=== PATIENT | female | born 1930 | race Caucasian/White ===

== ENCOUNTER → 2016-08-02 | Outpatient (CLI) | payer MEDICARE ==
--- NOTE | 2016-08-02 12:04 | PE ---
EXAMINATION TYPE: PET CT fusion skull to thigh DATE OF EXAM: 08/02/2016 10:42 AM CLINICAL HISTORY: Breast cancer initial staging study. Positive biopsy June 2016 right breast. TECHNIQUE: Following the intravenous administration of 14.81 mCi of F-18 FDG, whole body images are performed from the skull base to the midthigh. Images are reviewed on the computer in the coronal, axial, and sagittal planes. Reconstructed rotating images are created on independent workstation and reviewed on the computer. A non-contrast CT is performed in conjunction with the PET scan. COMPARISON: None. FINDINGS: SKULL BASE AND NECK: No suspicious hypermetabolic uptake is seen in the neck to suggest metastatic a denopathy. Increased uptake in both shoulders, right greater than left is presumed to reflect postinflammatory c hange. Mild symmetric uptake at level of vocal cords is felt to reflect product of phonation. CHEST, MEDIASTINUM, AND HILAR REGION: No suspicious hypermetabolic uptake is seen in the right breast . Mild diffuse uptake with surgical clips is felt to reflect posttreatment or surgical change. No trudi picious uptake or right axillary adenopathy is seen. No suspicious uptake is seen in the left breast. No suspicious uptake is seen in the remainder of the thorax. ABDOMEN AND PELVIS: No suspicious hypermetabolic uptake is seen in the abdomen or pelvis. Normal excr etion in the bladder is noted. OSSEOUS STRUCTURES: No suspicious hypermetabolic uptake is seen in osseous structures. OTHER CT: There is left subclavian Mediport catheter with tip difficult to distinctly visualized. The re is left-sided dual-lead pacemaker/AICD also present. There is background of mild to moderate emphysematous change with scattered areas of dependent atelec tasis along fissures and in both lungs. Heart size is upper limits of normal. Coronary artery calcification is present. There is moderate atherosclerotic change of aorta and branch vessels. Uterus is surgically absent or markedly atrophic in appearance. There is moderate fecal prominence throughout the colon. Sigmoid colonic diverticulosis is present. Osseous structures are demineralized. There is moderate right greater than left joint space loss in b oth hips. There is facet arthropathy lower lumbar levels. There is multilevel spurring in the thoraco lumbar spine. Exaggerated cervical curvature is seen. Marked disc space narrowing and spurring C6-C7 level is noted. IMPRESSION: No suspicious hypermetabolic uptake is seen to suggest persistent or metastatic malignanc y. Surgical changes right breast noted.
== END | disposition home or self-care (01) ==
LOC: RADPETMAIN 08:15
PROVIDERS: ATTEND Surgery
DX: C50.919 Malignant neoplasm of unspecified site of unspecified female breast (principal); Z98.890 Other specified postprocedural states
CPT/HCPCS: 78815; A9552

== ENCOUNTER 2016-08-26 08:21 | Day surgery (SDC) | payer MEDICARE ==
[2016-08-25 14:49] VITALS: BMI 23.8
[~2016-08-26 08:21] MED LIST: DEXAMETHASONE SOD PHOSPHATE 10 MG/ML 1 ML VIAL IV ONE; HEPARIN SODIUM,PORCINE 5,000 UNIT/ML 1 ML VIAL SQ ONE; LACTATED RINGERS 1,000 ML IV SCH; MIDAZOLAM 2 MG/2 ML VIAL IV PRN; ONDANSETRON 4 MG/2 ML VIAL IVP ONE; Pre Op ABX Message 1 EACH MISC MISCELLANE ONE
[2016-08-26] MEDS ORDERED: ALPRAZolam 0.25 MG TAB PO ONE (09:27)
[2016-08-26] MEDS ORDERED: LACTATED RINGERS 1,000 ML IV ONE ×2 (09:29→12:00)
[2016-08-26 09:33] LABS: Glucose,Whole Blood 122 mg/dL (75-99)
--- NOTE | 2016-08-26 09:58 | NM ---
EXAMINATION TYPE: NM sentinel node injection DATE OF EXAM: 08/26/2016 9:50 AM COMPARISON: NONE HISTORY: Breast cancer TECHNIQUE AND FINDINGS: The procedure of sentinel lymph node injection was explained to the patient. The benefits, alternatives, and risks were discussed. An informed consent was then obtained. Overlying skin is cleaned with sterile alcohol. Lidocaine buffered with bicarbonate was used as anes thetic into the skin and subcutaneous tissue surrounding the nipple. Following this, 546 uCi Tc 99m Filtered Sulfur Colloid was injected into 4 equivalent doses at 12, 3, 6, and 9:00 position surroundi ng the right nipple intradermally. The injection sites were massaged by nuclear cardiology technologist for 10 minutes after injection. T he patient tolerated the procedure well without any immediate complication. The patient was kept in the radiology department for short stay after the procedure and then taken to surgery for surgical pr ocedure what is presumed intraoperative gamma probe will be used for sentinel lymph node detection. IMPRESSION: Right breast radiotracer injection for sentinel node localization as above.
[2016-08-26] MEDS ORDERED: METHYLENE BLUE 10 MG/ML 1 ML VIAL IV ONE (10:26)
[2016-08-26] MEDS ORDERED: HEPARIN SODIUM,PORCINE 5,000 UNIT/ML 1 ML VIAL SQ ONE (10:31)
[2016-08-26] MEDS ORDERED: ePHEDrine 50 MG/ML 1 ML AMP ONE (10:46)
[2016-08-26] MEDS ORDERED: SUCCINYLCHOLINE CHLORIDE 100 MG/5 ML SYR IV ONE (10:46)
[2016-08-26] MEDS ORDERED: ROCURONIUM BROMIDE 10 MG/ML 10 ML VIAL IV ONE (10:46)
[2016-08-26] MEDS ORDERED: NEOSTIGMINE 1 MG/ML 10 ML VIAL ONE (10:46)
[2016-08-26] MEDS ORDERED: GLYCOPYRROLATE 0.2 MG/ML 2 ML VIAL ONE (10:46)
[2016-08-26] MEDS ORDERED: PROPOFOL 10 MG/ML 20 ML VIAL IV ONE (10:46)
[2016-08-26] MEDS ORDERED: LIDOCAINE 1% INJ 10MG/ML (20 ML MDV) ONE (10:46)
[2016-08-26] MEDS ORDERED: PHENYLEPHRINE-0.9% NACL SYG 1 MG/10 ML SYRINGE ONE (10:46)
[2016-08-26] MEDS ORDERED: MIDAZOLAM 2 MG/2 ML VIAL ONE (10:46)
[2016-08-26] MEDS ORDERED: fentaNYL (PF) 50 MCG/ML 2 ML AMP ONE (10:46)
[2016-08-26] MEDS ORDERED: SODIUM CHLORIDE 0.9% 50 ML with ceFAZolin 2,000 MG IV ONE ×2 (11:05)
[2016-08-26] MEDS ORDERED: METHYLENE BLUE 10 MG/ML 1 ML VIAL INJ ONE (11:57)
[2016-08-26] MEDS ORDERED: NALOXONE 0.4 MG/ML 1 ML VIAL IV PRN (12:09)
[2016-08-26] MEDS ORDERED: ONDANSETRON 4 MG/2 ML VIAL IVP PRN (12:09)
[2016-08-26] MEDS ORDERED: HYDROmorphone 1 MG/ML 1 ML SYRINGE IV PRN (12:09)
[2016-08-26] MEDS ORDERED: HYDROcodone/APAP 5-325MG 1 EACH TAB PO PRN (12:09)
--- NOTE | 2016-08-26 12:09 | P.OP ---
Date of Procedure: 08/26/16 Preoperative Diagnosis: Right breast cancer Postoperative Diagnosis: Right breast cancer sentinel node negative for cancer Procedure(s) Performed: Right breast lymphatic mapping, mastectomy, and sentinel node biopsy Anesthesia: EDWIN Surgeon: Prisca Bledsoe Guitar Maker Hand #1: Cori Brown Estimated Blood Loss (ml): 25 IV fluids (ml): 1,000 Pathology: other (Right breast, and sentinel node) Condition: stable Disposition: PACU Indications for Procedure: Right breast cancer Operative Findings: Right breast, sentinel node negative for cancer on frozen section Description of Procedure: Patient was taken to the operating room and following induction of general anesthesia the right breast and axilla were prepped and draped in a sterile fashion. Prior to this of 6 mL of quarter strength methylene blue were injected in the periareolar area. The breast was massaged. The after the patient had been prepped and draped. An inferior skin flaps were developed. These were carried down to the chest wall. Breast was dissected from medial to lateral being careful to maintain hemostasis using electrocautery device and the Harmonic scalpel. The breast was then removed. In the axilla there was a blue radioactive lymph node identified. The 10 second count on the lymph node was 156 and the 10 second count in the axilla background was 4. The lymph node was sent for frozen section evaluation was noted to be blue as well and it was negative for cancer. No other adenopathy was identified. No other blue or radioactive lymph nodes were noted. The wound was well irrigated. 2 RHONDA drains were placed one in the axilla and one under the skin flaps. The deep tissues were closed using 3-0 Vicryl suture. This was felt that closing the skin with 4-0 Monocryl. Steri-Strips were applied. Patient tolerated procedure in stable condition. All instrument and sponge counts were correct at the end of the case.
[2016-08-26] MEDS ORDERED: DEXTROSE 5%-0.45% NACL 1,000 ML IV SCH (12:15)
[2016-08-26 12:37] LABS: Glucose,Whole Blood 126 mg/dL (75-99)
[2016-08-26] MEDS: HYDROmorphone 1 MG/ML 1 ML SYRINGE IVP PRN ×2 (12:52→13:09)
[2016-08-26] MEDS: HEPARIN SODIUM,PORCINE 5,000 UNIT/ML 1 ML VIAL SQ SCH (23:49)
[2016-08-27] MEDS: HEPARIN SODIUM,PORCINE 5,000 UNIT/ML 1 ML VIAL SQ SCH (09:13)
[2016-08-27 11:00] LABS: Basophils % (A) 0 %; CH 30.6; CHCM 32.9; Eosinophils % (A) 0 %; HCT 32.8 % (34.0-46.0); HDW 2.35; HGB 10.6 gm/dL (11.4-16.0); Luc # (Auto) 0.06; Luc % (Auto) 1; Lymphocytes # (A) 1.5 k/uL (1.0-4.8); Lymphocytes % (A) 16 %; MCH 30.2 pg (25.0-35.0); MCHC 32.2 g/dL (31.0-37.0); MCV 93.8 fL (80.0-100.0); Mean Platelet Volume 8.4; Monocytes # (A) 0.6 k/uL (0-1.0); Monocytes % (A) 7 %; Neutrophils # (A) 6.9 k/uL (1.3-7.7); Neutrophils % (A) 76 %; WBC 9.1 k/uL (3.8-10.6); WBC (Perox) 9.19
[2016-08-27 13:19] VITALS: BP 114/74; PULSE 66; RESP 16; TEMP 97.6
--- NOTE | 2016-08-27 13:23 | P.DS ---
Providers Expected date of discharge: 08/27/16 Attending physician: Prisca Bledsoe Consults: 08/26/16 12:12 Consult Physician Routine Consulting Provider: Geoffrey Jones Consult Reason/Comments: Medical management Do you want consulting provider notified?: Yes Primary care physician: [facility] Course: 85-year-old female who presented on an elective basis to undergo right breast mastectomy for right breast cancer sentinel node-negative for cancer done on August 26 postprocedure there were no postop events. On the day of discharge the patient was evaluated by the surgical service Dr. Nuno. Dressing in place with 2 Justice-Niño drains. Pain medication has been effective for pain control patient was felt to be hemodynamically stable and appropriate to proceed with a discharge. It's noted the patient does have a permanent pacemaker in which the patient states it's been years since it has been checked did advise the patient to have this checked in the outpatient setting defer to her family doctor to set up in a range the hemoglobin on the day of discharge was 10.6 subsequent the patient was discharged with the plan the patient with follow-up with Dr. Nuno as directed Impression discharge diagnosis History of right breast cancer Postop 26 of August right breast mastectomy sentinel node negative for cancer on frozen section History of a permanent pacemaker The above dictated assessment and findings were discussed with Dr. Andres Haro. Impression and the plan of care have been dictated as directed. Laurel Ramos nurse practitioner acting as a scribe for Nurys Plan - Discharge Summary Discharge Medication List Aspirin 81 mg PO DAILY 07/09/16 [History] Benazepril/Hydrochlorothiazide [Benazepril-Hctz 20-25 mg Tab] 1 each PO QAM [History] Etodolac [Lodine] 400 mg PO BID 07/09/16 [History] Naproxen 500 mg PO Q12HR 07/09/16 [History] Oxybutynin Chloride [Ditropan XL] 5 mg PO DAILY 07/09/16 [History] Venlafaxine HCl [Effexor XR] 75 mg PO QAM 07/09/16 [History] diphenhydrAMINE [Benadryl] 50 mg PO HS PRN 07/09/16 [History] Levothyroxine Sodium [Synthroid] 50 mcg PO DAILY 08/25/16 [History] Follow up Appointment(s)/Referral(s): Prisca Bledsoe MD [STAFF PHYSICIAN] - 1 Week Discharge Disposition: HOME SELF-CARE
--- NOTE | 2016-08-27 13:34 | CONS ---
DATE OF CONSULTATION: 08/27/2016 REASON FOR CONSULTATION: Medical management requested Dr. Coleen Bledsoe. CONSULTATION: This is an 85-year-old patient of Dr. Cleveland Neely who has undergone surgery by Dr. Coleen Bledsoe. Patient had right breast lymphatic mapping, mastectomy and sentinel node biopsy. Post procedure, patient has got a dressing in place. Patient's chronic stable medical conditions include diabetes, hypertension, osteoarthritis, hypothyroid, restless leg syndrome. Patient has got diminished hearing, wears hearing aids, depression. Patient is a smoker. Postprocedure today, patient actually had a meal. Slight cough, but no wheezing. Does not have a diagnosis of COPD. Sitting up. REVIEW OF SYSTEMS: CONSTITUTIONAL: None. HEENT: None. RESPIRATORY: Occasional cough. CARDIOVASCULAR: None. GASTROINTESTINAL: None. GENITOURINARY: None. MUSCULOSKELETAL: Aches and pains in the joints. DERMATOLOGICAL: None. HEMATOLOGIC: None. LYMPHATICS: None. PSYCHIATRY: Some anxiety, depression. NEUROLOGICAL: None. Past history of diabetes mellitus type 2, hearing disorder, hypertension, osteoarthritis, rheumatoid arthritis. hypothyroid, restless leg syndrome, bilateral hearing aids, breast cancer. PAST SURGICAL HISTORY: Hysterectomy, pacemaker. Past psych history of depression. SOCIAL HISTORY: Lives by herself. Smokes about a 1/2 pack a day close to 70 years. Alcohol history intake. FAMILY HISTORY: Myocardial infarction. HOME MEDICATIONS: 1. Benadryl 50 mg q.h.s. p.r.n. 2. Synthroid 50 mcg p.o. daily. 3. Effexor-XR 75 mg p.o. daily. 4. Ditropan XL 5 mg p.o. daily. 5. Naproxen 500 mg q.12. 6. Lodine 400 mg p.o. b.i.d. 7. Benazepril hydrochlorothiazide 20/25 one tablet p.o. daily. 8. Aspirin 81 mg p.o. daily. Allergies to VICODIN, LATEX. On examination, temperature 98.6, pulse 59, respirations 20, blood pressure 147/71, pulse ox 96% on room air. GENERAL APPEARANCE: Average built, sitting up, comfortable. EYES: Pupils equal. Conjunctivae normal. HEENT: External appearance of nose and ears normal. Oral cavity normal. NECK: JVD not raised. Mass not palpable. RESPIRATORY: Effort normal. LUNGS: Fair air entry. CARDIOVASCULAR: First and second sounds normal. No edema. ABDOMEN: Soft, nontender. Liver and spleen not palpable. LYMPHATIC: No lymph nodes palpable in neck or axillae. PSYCHIATRY: Alert and oriented x3. Mood and affect normal. NEUROLOGICAL: Pupils equal. Cranial nerves grossly intact. Power and sensation grossly intact. MUSCULOSKELETAL: ( ) evidence of osteoarthritis in the hands. CHEST WALL: Got a dressing in place. INVESTIGATIONS: White count 9.1, hemoglobin 10.6, platelets 260. Accu-Cheks are noted. ASSESSMENT: 1. Right mastectomy. 2. Diabetes mellitus type 2, chronically on oral hypoglycemic. 3. Essential hypertension. 4. Primary osteoarthritis and rheumatoid arthritis multiple joints. 5. Hypothyroidism. 6. Restless leg syndrome. 7. Chronic urinary stress incontinence. 8. Depression, not otherwise specified. 9. Chronic nicotine dependence. Patient is a smoker. PLAN: Patient was counseled against smoking. The patient will use nicotine patch when she goes home she says. Also, use ( ). Home medications will be resumed. Patient should follow up with her family doctor upon discharge. Thank you, Dr. Coleen Bledsoe.
== END 2016-08-27 14:06 | disposition home or self-care (01) ==
LOC: OR 08:21 → 6PED 12:12 → OR 08-27 14:06
PROVIDERS: ATTEND Surgery
DX: C50.911 Malignant neoplasm of unspecified site of right female breast (principal); N60.11 Diffuse cystic mastopathy of right breast; N60.81 Other benign mammary dysplasias of right breast; D24.1 Benign neoplasm of right breast; E03.9 Hypothyroidism, unspecified; I10 Essential (primary) hypertension; F32.9 Major depressive disorder, single episode, unspecified; M19.90 Unspecified osteoarthritis, unspecified site; M06.9 Rheumatoid arthritis, unspecified; E11.9 Type 2 diabetes mellitus without complications; Z95.0 Presence of cardiac pacemaker; F17.200 Nicotine dependence, unspecified, uncomplicated; Z79.82 Long term (current) use of aspirin; Z79.899 Other long term (current) drug therapy; Z79.84 Long term (current) use of oral hypoglycemic drugs; Z79.1 Long term (current) use of non-steroidal anti-inflammatories (NSAID); Z91.040 Latex allergy status; Z88.5 Allergy status to narcotic agent
CPT/HCPCS: 85025; 88342; 88331; 88307; 88341; 38792; 19303; 38525; A9541; J2250; J1644 ×2; J1100; J2710; J2405; J2001; Q9968; J3010; J1170; J0690; J2370; J0330; J2704